=== PATIENT | female | born 1990 | race Caucasian/White ===

== ENCOUNTER 2025-04-05 11:29 | Outpatient (CLI) | payer OTHER, SELFPAY ==
[2025-04-06 13:35] LABS: Strep B DNA Probe Negative (Negative)
[2025-04-06 14:36] LABS: Strep B Susceptibility Needed? No
== END 2025-04-05 11:30 | disposition home or self-care (01) ==
LOC: NFLDREF 11:30
PROVIDERS: Visit Provider Obstetrics & Gynecology
DX: Z34.93 Encounter for supervision of normal pregnancy, unspecified, third trimester (principal)
CPT/HCPCS: 87081; 87653

== ENCOUNTER 2025-04-21 23:45 | Inpatient (IN) | payer OTHER, SELFPAY ==
[2025-04-21 23:08] VITALS: BP 118/66; PULSE 78; RESP 16; TEMP 37.2
[2025-04-21 23:19] LABS: Amnisure Rom* POSITIVE
[2025-04-21 23:49] VITALS: BMI 34.0
--- NOTE | 2025-04-21 23:49 | W.PM.LDBA ---
Subjective History of Present Illness Date Seen: 04/21/25 Narrative: Patient is being admitted to Labor and Delivery after presenting with concerns about possible SROM. She is a 34 year old at 38 2/7 weeks gestation. Her full history and physical was dictated by Dr. Au on 04/12/25. Please see this for details. Patient called labor and delivery at around 9:30pm stating that a bit earlier at home she noticed a popping sensation followed by a watery discharge. Upon evaluation in triage tonight no obvious watery discharge but AmniSure collected and positive. Specific Issues/Plans G 1 P0 Partner: Matt Baby: Boy! Name: undecided H&P: 04/12/25 Suppes # transfer at 32 weeks # history of depression, doing well without treatment # Fall 03/01/25, slipped on stairs landing on buttocks. Tailbone pain #Varicella infection hx - 97-99% immunity per ACOG. Offered serologies with next lab draw, patient declined. Imagin. 12/16/2024: Anterior placenta, no previa. EFW 59.9%. Normal anatomy with suboptimal views of face and heart views 2. 01/13/2025: Previous suboptimal views are visualized and normal Vaccinations: COVID: declined 03/23/25 Flu:declined 03/23/25 Tdap: 02/23/25 RSV: discussed would like to think about it 03/23/25, FU at 36 week frank. Declines 32 week mental health: PHQ-9: 0, Adam 7: 0 Last pap: 05/2020, NIL/-HPV. Pap PP labs 10/14/2024: O positive, negative antibody screen, hemoglobin 13.5, platelets 335, rubella immune, RPR nonreactive, hepatitis-B surface antigen nonreactive, HIV nonreactive. Hx varicella infection. Gonorrhea and chlamydia are both negative. Urine culture is negative. Hep C is negative. A1c is 5.1%. Negative carrier screening Low risk genetic screening, male 28 week labs 02/08/2025: Hgb 12.4, 1 hour GTT 93, RPR non-reactive GBS negative OB - Problem Based A/P Additional Plan (1) SROM (spontaneous rupture of membranes): Status: Acute (2) Supervision of other normal : Status: Acute Plan 1. Evidence of SROM, patient rachel regularly but not feeling them as painful upon admission. She would like to try to rest and if after a period of rest- 6 hours- she is unchanged plan will be to start IV Oxytocin vs Cytotec if possible. 2. GBS negative no need for antibiotic prophylaxis. 3. Uncomplicated , monitoring per guidelines. 4. Pain management as needed. 5. Expect . OB Result Labs Labs: Amnisure positive. OB Exam Physical Exam Vital signs: Pulse BP 78 118/66 04/21/25 23:08 04/21/25 23:08 Detailed Labor and Delivery Exam Patient Gravid: yes Fetus (Single) Heart Rate Baseline: 130 Monitor Accelerations: Present Monitor Decelerations: None Black Top Raker Variability: Moderate (6-25)
[2025-04-22] VITALS (31 sets, daily range): BP systolic 80–132; BP diastolic 44–82; PULSE 58–100; RESP 16–18; TEMP 36.5–37.2; O2SAT 93–100
--- NOTE | 2025-04-22 11:21 | P.OBPN_ITS ---
Subjective Time Seen by Provider: 11:21 Date Seen: 04/22/25 Objective Vital Signs: Last Vital Signs Temp 98.1 F 04/22/25 10:33 Pulse 67 04/22/25 10:33 Resp 16 04/22/25 03:24 BP 121/69 04/22/25 10:33 Pelvic Exam Comments: 3.5/75/-1 per nurse check at 1040. Patient breathing and grimacing through contractions. Last misoprostol dose at 1036. Discussed with patient that we'll plan on switching over to pitocin after 4 hours as she's making sufficient progress. Patient will eventually want an epidural. Epidural per patient's preferrence. NST: baseline 125-130 bpm, moderated variability, + acceleration, - deceleration Velva: Q2-3 minutes Assessment Assessment: early labor Station: -1 Amniotic Membrane Status: SROM Status: Category l Heart Rate Baseline: 130 Senior Care Variability: Moderate (6-25) Monitor Accelerations: Present Monitor Decelerations: None
[2025-04-22] MEDS: LACTATED RINGERS 1000 ML 1,000 ML IV ×2 (11:30→13:48)
--- NOTE | 2025-04-22 13:36 | P.OBPN_ITS ---
Subjective Date Seen: 04/22/25 Objective Vital Signs: Last Vital Signs Temp 97.7 F 04/22/25 12:34 Pulse 82 04/22/25 12:34 Resp 16 04/22/25 03:24 BP 131/82 04/22/25 12:34 Pulse Ox 93 04/22/25 13:35 Pelvic Exam Dilation (cm): 9 Effacement (%): 100 Station: 0 Comments: Patient very uncomfortable. Requesting epidural. 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
[2025-04-22] MEDS: ROPIVACAINE 0.2% 100 ml 100 ML 12 MG EPIDURAL (13:47)
[2025-04-22] MEDS: LIDOCAINE 2% (PF) 5 ML VIAL EPIDURAL (13:47)
[2025-04-22] MEDS: PHENYLEPHRINE 100 MCG/ML SYRINGE IVP (14:15)
--- NOTE | 2025-04-22 14:16 | PM.ANBPRC ---
[facility] Medical History Depression ?F32.A - Depression, unspecified (ICD-10) Social History Narrative: Occupation: Unemployed. Marital status: . Scientology/cultural needs: no. Chemical or radiation exposure: no. Pre- tobacco use: no. Pre- alcohol use: 0-1 per day. Current tobacco use: no. Current alcohol use: no. Recreational drug use: no. Dietary restrictions: no. Blood transfusion acceptable in an emergency: yes. PSYCHOSOCIAL HISTORY: History of depression or currently depressed: Yes, history. Current physical, emotional, or sexual mistreatment: Denies. Problems that will make it hard to make it to appointments: Denies. What is your current living situation?: I presently have a place to live Problems where you live: no known problems In the past 12 months, utilities in danger of being shut off: no In past 12 months, lack of transportation kept you from medical appts, meetings, work, or getting things needed for daily living: no In the past 12 mos, have been you worried that your food would run out before you had money to buy more?: never true In the past 12 mos, the food you bought just didn't last and you didn't have money to buy more?: never true Smoking Status: Never smoker How often does anyone, including family, friends and others, physically hurt you: never How often does anyone, including family, friends and others, insult or talk down to you: never How often does anyone, including family, friends and others, threaten you with harm: never How often does anyone, including family, friends and others, scream or curse at you: never Meds Home Medications and Allergies Home Medications ?Medication ?Instructions ?Recorded ?Confirmed ?Type docosahexaenoic acid 200 mg 200 mg PO DAILY PRN 03/08/25 04/22/25 History capsule ( DHA) Allergies Allergy/AdvReac Type Severity Reaction Status Date / Time No Known Drug Allergies Allergy Verified 04/19/25 09:21 Results Labs Labs: Laboratory Results - last 24 hr 04/21/25 04/21/25 09:20 23:00 Membrane Rupture POSITIVE Syphilis IgG Antibody Non-Reactive Vital Signs Vital Signs: Last Vital Signs Temp 97.7 F 04/22/25 12:34 Pulse 58 L 04/22/25 14:15 Resp 16 04/22/25 03:24 BP 91/44 L 04/22/25 14:15 Pulse Ox 100 04/22/25 13:47 Weight: 89.811 kg Height: 162.56 cm Anesthesia Procedures Epidural Insertion Patient Location: OB Start Time: 13: Stop Time: 14:30 Start Date: 04/22/25 Stop Date: 04/22/25 Reason for Block: procedure for pain Patient Position: sitting Performed By: Wilbert Mobley Preanesthetic Checklist: IV checked, risks and benefits discussed, monitors and equipment checked, pre-op evaluation, timeout performed and anesthesia consent Prep: chlorhexidine gluconate Monitoring: blood pressure monitoring, continuous pulse oximetry and heart rate Approach: midline Vertebral Space: lumbar (1-5) Epidural Technique: NOEL saline Needle Type: Tuohy needle Injection Technique: continuous catheter Needle gauge: 17 Needle Length (cm): 10 cm Needle Insertion Depth (cm): 6 Catheter Gauge: 19 Catheter Type: multi-orifice Catheter at skin depth (cm): 19 Test Dose Result: negative and lidocaine 1.5% with epinephrine 1 to 200,000
--- NOTE | 2025-04-22 16:29 | W.PM.VAGD1_ITS ---
Procedure Delivery date: 04/22/25 Procedure Done: Global Events: Labor Augmentation and Premature Rupture of Membrane Intrapartal Events: Labor Augmentation Delivery monitor: external FHT Route of delivery: Laceration description: Periurethral - 1st Degree (right ) Delivery repair: Vicryl Estimated blood loss (mL): 300 Anesthesia type: Epidural Disposition: floor Narrative: The patient is a 34 year-old admitted on on 04/21/25 at 38 and 3/7 weeks gestation for PROM. GBS negative Labor Analgesia: Epidural Pitocin: Only for active 3rd stage management SROM: 04/21 at 2100, with clear fluid S/p 4 doses of 25 mcg of PO misoprostol Complete: 04/22 at 1416 Pushin/18 at 1423 heart tones during second stage were cat II with deep variables to 70s that resolve with lateral tilt and cessation of contractions. Patient making great descent throughout. At 1454 a viable male (Javier) delivered in vertex OA presentation over intact via spontaneous vaginal delivery. The infant's body was delivered in the usual manner without difficulty. The was placed on maternal abdomen. The cord was clamped and cut after a 30-60 second delay. The nose and mouth were bulb suctioned. weight: pending. 8 at 1 minute and 9 at 5 minutes. Shoulder dystocia: No. Nuchal cord: No Placenta delivered spontaneously and complete at 1458 with a 3-vessel cord. Placenta examined and noted to be complete. Placenta was not sent to pathology. The cervix and vagina were inspected for lacerations. Laceration(s): 2nd degree perineal and small right periurethral, repaired with 2-0 vicryl and 3-0 vicryl Complications: None Estimated blood loss: 300 cc, mostly from arterial bleeding from 2nd degree laceration. Sponge and needles counts are correct. Mother and infant were stable at the time of this note. [place] Gender: Male presentation: vertex Placental Delivery Description: Spontaneous Cord Description: 3 Vessels
[2025-04-22] MEDS: IBUPROFEN 600 MG TABLET PO (20:21)
[2025-04-23 00:39] VITALS: BP 105/68; PULSE 78; RESP 16; TEMP 36.5; O2SAT 97
[2025-04-23 03:59] VITALS: BP 119/70; PULSE 76; RESP 16; TEMP 36.4; O2SAT 99
[2025-04-23 06:28] LABS: Hemoglobin* 11.7 gm/dL (12.0-16.0)
[2025-04-23 08:45] VITALS: BP 126/72; PULSE 83; RESP 16; TEMP 36.5; O2SAT 97
--- NOTE | 2025-04-23 08:59 | PM.OBPNVD1 ---
OB - PN:Subj Subjective Time Seen by Provider: 08:59 Date Seen: 04/23/25 Patient comments OB post-: no complaints, pain well controlled and tolerating diet [place] infant status: and doing well [place] feeding status: exclusively (Supplementing with syringe feeding) Narrative: ? ?Day 1:??Vaginal?Delivery at 38 and 4/7 weeks.? ?? Complications:? None ? Nayeli?feels well.??Her?pain is well controlled with current medications.??She has no new complaints.??Urinary output is?adequate?and she is voiding without difficulty.??Has?a good appetite, is tolerating a general diet, is passing flatus, and has?[]?had a bowel movement.??Has?[]?amount?of rubra lochia.??She?is?ambulating?well.? OB - PN: Obj Exam Physical Exam: Vital signs: Temp Pulse Resp BP Pulse Ox O2 Del Method 97.6 F 76 16 119/70 99 Room Air 04/23/25 03:59 04/23/25 03:59 04/23/25 03:59 04/23/25 03:59 04/23/25 03:59 04/23/25 03:59 Narrative: GENERAL APPEARANCE:? normal?affect, alert, no distress? MOOD:? appropriate? CHEST:? clear?to auscultation and percussion? HEART:? regular?rate and rhythm? BREASTS: soft, nontender, no erythema, nipples intact? ABDOMEN:? soft, non-tender?the uterine?fundus is?firm 1<U?and is?appropriate for?the stage of recovery.? PERINEUM:? mild?edema of the perineum, there is?a?periurethral laceration?that?is healing well.? EXTREMITIES:? normal?and no edema? OB - PN: Obj Data Labs Labs: Laboratory Results - last 24 hr 04/21/25 04/23/25 09:20 06:07 Hgb 11.7 L Syphilis IgG Antibody Non-Reactive OB - PN: A/P Delivery Assessment and Plan (1) care and examination of lactating mother: Status: Acute (2) (normal spontaneous vaginal delivery): Status: Acute Plan 34?year old?on ?day 1.? 1. ?cares.? 2.?Anticipate?discharge tomorrow, possibly later today if desires and baby is discharged by peds.? Plan day: 1 Plan: routine care
[2025-04-23 12:48] VITALS: BP 106/70; PULSE 92; RESP 16; TEMP 36.7; O2SAT 97
--- NOTE | 2025-04-23 13:18 | PM.ANPOST ---
Post Anesthesia Note Post Anesthesia Note Patient seen: Inpatient Respiratory Status: adequate Cardiovascular Status: adequate Mental Status: baseline Pain: adequate Temp: baseline Anesthetic awareness: N/A Complications: none Follow care: none
[2025-04-23 17:41] VITALS: BP 119/71; PULSE 83; RESP 16; TEMP 36.6; O2SAT 97
[2025-04-24 00:21] VITALS: BP 121/73; PULSE 83; RESP 18; TEMP 36.8; O2SAT 98
[2025-04-24] MEDS: IBUPROFEN 600 MG TABLET PO (00:22)
[2025-04-24 08:27] VITALS: BP 118/70; PULSE 87; RESP 14; TEMP 36.6; O2SAT 97
--- NOTE | 2025-04-24 10:15 | P.DS_ITS ---
DS: Providers Provider Date Seen: 04/24/25 Date of admission: 04/21/25 23:45 Primary care physician: Not a Local Provider Admitting Clinician: Sharonda León MD Attending Physician on discharge: Sharonda León MD Date of Discharge: 04/24/25 DS: Diagnosis Discharge Diagnosis (1) (normal spontaneous vaginal delivery): Status: Acute (2) care and examination of lactating mother: Status: Acute Exam Narrative: Exam Narrative: Physical exam: General: No acute distress Psych: Alert and oriented x4, full affect HEENT: Normocephalic, atraumatic Heart: Regular rate and rhythm, no murmur rub or gallop Lungs: Clear to auscultation bilaterally Abdomen: Normoactive bowel sounds, soft, no tenderness, rebound Skin: No lesions or rashes Breasts: no nodules or masses, no nipple discharge, no axillary adenopathy Lower extremities: No edema or erythema Pelvic exam: No vaginal bleeding on pad Const: Vital Signs, click to edit/add: Vital Signs - 24 hr 04/23/25 12:48 04/23/25 17:41 04/24/25 00:21 Temperature 98.1 F 97.8 F 98.2 F Pulse Rate [Pulse Oximeter] 92 83 83 Respiratory Rate 16 16 18 Blood Pressure [Ri ght Arm] 106/70 119/71 121/73 Pulse Oximetry 97 97 98 Oxygen Delivery Me thod Room Air Room Air Room Air 04/24/25 08:27 Temperature 97.9 F Pulse Rate [Pulse Oximeter] 87 Respiratory Rate 14 Blood Pressure [Ri ght Arm] 118/70 Pulse Oximetry 97 Oxygen Delivery Me thod Room Air OB - DS: Summary Hospital Course Hospital Course: The patient is a 34 year old at 38 weeks gestation that was admitted to the Center on 04/21/25 for PROM. She had an uncomplicated vaginal delivery. She delivered a viable male infant. She is . the patient has done well. [place] Gender: Male Time Spent with Patient Time attestation: Total time spent providing and/or coordinating discharge services: Discharge Plan Discharge Disposition: Home, Self-Care Date of Admission: 04/21/25 23:45 Attending Provider on Discharge: Romi Reyes Primary Care Provider: Provider,Not a Local Condition: Stable Anticipated Discharge Date/Time: 04/23/25 17:46 Discharge Medications: Continued DHA 200 mg capsule 200 mg PO DAILY PRN Discharge Orders: Discharge Order (Routine); Ordered 04/24/25 Ordered By: Sheri Brown Patient Education: OB Vaginal/Breast Feeding Additional Instructions: ? ? Discharge instructions were reviewed with the patient including signs and symptoms of infection and home going medications.? Lifting Restrictions:?20 pounds for?6? weeks? ?? Take ibuprofen 400mg every 4-6 hours as needed for pain or cramping. Take a stool softener as needed for constipation, such as Colace (docusate).? Off Work or School for 6 weeks.? ?? Symptoms to report to doctor:?-Bleeding that saturates more than one pad per hour? -Passing clots larger than the size of a golf ball? -Pain not relieved by prescribed medication? -Fever above 100.4 degrees Fahrenheit? -A foul vaginal odor? -Difficulty in emotions, mood and functions? -Thoughts of hurting yourself and/or ? -Painful, reddened area in your breast? -Any drainage, redness or tenderness in your IV/epidural site? -Severe headache that doesn't improve after taking medications? -Changes in vision, including temporary loss of vision, blurred vision, and/or light sensitivity? -Upper abdominal pain (usually under ribs on the right side)? -Decrease in urination or painful, frequent urinating? -Chest pain? -Shortness of breath? -Tenderness or pain with redness and/swelling in the calf(s) of your leg? ? Follow Up in clinic in 2 and 6 weeks.? ?? consultation services are available to all mothers and babies for the first year after delivery.? To make an appointment, please call [phone].? Activity Level: Activity as Tolerated Discharge Diet: Regular Follow Up Appointments: Provider,Not a Local [Primary Care Provider, Family Practice] Forms: MyHealth Info Instructions
[2025-04-24] MEDS: DOCUSATE SODIUM 100 MG CAPSULE PO (12:33)
== END 2025-04-24 13:39 | disposition home or self-care (01) | DRG 807 ==
LOC: OB OUT 23:45 → OB 23:45
PROVIDERS: Obstetrics & Gynecology; Admitting Provider Obstetrics & Gynecology; Visit Provider Obstetrics & Gynecology
DX: O42.02 Full-term premature rupture of membranes, onset of labor within 24 hours of rupture (principal); O70.1 Second degree perineal laceration during delivery; G89.18 Other acute postprocedural pain; Z3A.38 38 weeks gestation of pregnancy; Z37.0 Single live birth
CPT/HCPCS: 01967; 36415; 59200; 64488; 84112; 85018; 85025; 86780; 86850; 86900; 86901; A9270; J2795; J3010; J7120